=== PATIENT | male | born 1995 | race Caucasian/White ===

== ENCOUNTER 2017-10-11 19:09 | Emergency (ER) | payer OTHER ==
[2017-10-11 19:13] VITALS: BP 167/98; PULSE 72; RESP 18; TEMP 97.9; O2SAT 96
[2017-10-11] MEDS ORDERED: diphenhydrAMINE 25 MG CAP PO ONE (20:07)
--- NOTE | 2017-10-11 20:08 | EDPHY ---
H & P Stated Complaint: CASHEW IN MOUTH/SPIT OUT FEW SPOTS ON TONGUE Time Seen by Provider: 10/11/17 19:46 HPI/ROS: CHIEF COMPLAINT: Tongue swelling after contacting cashew HISTORY OF PRESENT ILLNESS: The patient is a 22 y/o male with a known cashew allergy arriving for evaluation after contact with cashews one hour ago. He was starting to eat some rice and was alerted that there were cashews in the rice right before he swallowed. He spit out the food, but noticed his tongue started to swell. He went home to get his EpiPen, but did not use it nor take Benadryl or any other medications. At time of assessment, his tongue feels back to normal. He denies difficulty breathing, difficulty swallowing, facial swelling, facial or mouth itching, hives, nausea, vomiting, or other complaints. REVIEW OF SYSTEMS: Constitutional: No fever, no chills Eyes: No visual changes ENT: No sore throat, no oral swelling Respiratory: No cough, no shortness of breath Cardiac: No chest pain Gastrointestinal: no vomiting, no abdominal pain Genitourinary: no dysuria Musculoskeletal: No swelling Skin: No rash or itchiness Neurological: No headache, no weakness Psychiatric: felt anxious - Personal History Current Tetanus/Diphtheria Vaccine: Yes - Medical/Surgical History PMH: PMH includes: 1. Cashew allergy - has old EpiPen 2. Appendectomy Hx Asthma: No Hx Chronic Respiratory Disease: No Hx Diabetes: No Hx Cardiac Disease: No Hx Renal Disease: No Hx Cirrhosis: No Hx Alcoholism: No Hx HIV/AIDS: No Hx Splenectomy or Spleen Trauma: No Other PMH: CASHEW ALLERGY/APPY - Social History Smoking Status: Never smoked Additional Social History: Nonsmoker. [employer] student. - Physical Exam Exam: General Appearance: Alert, no distress Eyes: Pupils equal and round, no conjunctival injection, no periorbital swelling ENT, Mouth: Normal inspection, no tongue/oral swelling, uvula midline Neck: Normal inspection, no stridor Respiratory: Lungs are clear to auscultation, no wheezing Cardiovascular: Regular rate and rhythm Gastrointestinal: Abdomen is soft and non-tender Neurological: A&O, nonfocal, normal gait Skin: Warm and dry, no urticaria Extremities: normal inspection, no swelling Psychiatric: Mood and affect normal Constitutional: Initial Vital Signs Temperature (C) 36.6 C 10/11/17 19:10 Heart Rate 72 10/11/17 19:10 Respiratory Rate 18 10/11/17 19:10 Blood Pressure 167/98 H 10/11/17 19:10 O2 Sat (%) 96 10/11/17 19:10 O2 Delivery Mode Room Air Allergies/Adverse Reactions: No Known Allergies Allergy (Unverified 10/11/17 19:10) Home Medications: Medication Instructions Recorded EPINEPHrine 10/11/17 EPINEPHrine [Epipen 0.3 MG] 0.3 mg IM ONCE #2 syr 10/11/17 Medical Decision Making ED Course/Re-evaluation: This is a healthy 22 y/o male with a cashew allergy who presents for evaluation of tongue swelling after contact with cashews. He is asymptomatic upon assessment. No respiratory distress or airway involvement on exam. No rash or vomiting. He does not appear to be having an ongoing allergic reaction, but recommended 25mg PO Benadryl prior to discharge. New EpiPen script provided. Strict return precautions discussed. He is comfortable with this plan. Differential Diagnosis: includes though not limited to angioedema, bronchospasm, urticaria, hypotension , airway compromise - Data Points Medications Given: Discontinued Medications Diphenhydramine HCl (Benadryl) 25 mg PO EDNOW ONE Stop: 10/11/17 20:08 Last Admin: 10/11/17 20:15 Dose: 25 mg Departure - Departure Disposition: Home, Routine, Self-Care Clinical Impression: Allergic reaction Qualifiers: Encounter type: initial encounter Qualified Code(s): T78.40XA - Allergy, unspecified, initial encounter Condition: Good Instructions: Epinephrine (By injection), Food Allergy (ED) Additional Instructions: 1. Take Benadryl as directed on the packaging should you develop any itching, swelling, rash, or other allergy symptoms. 2. Use EpiPen if you develop difficulty breathing or swallowing, facial swelling , severe rash, or other worsening of condition. Return to the ED if you develop these symptoms and/or if you use your EpiPen. 3. Follow up with your primary care provider as needed. Referrals: [facility],. [Clinic] - Follow Up Only If Needed Prescriptions: EPINEPHrine [Epipen 0.3 MG] 0.3 mg IM ONCE #2 syr Report Scribed for: Cristina Shaikh Report Scribed by: Keisha Dunlap Date of Report: 10/11/17 Time of Report: 20:08 Physician Review and Approval Statement: 10/11/17 20:08 Portions of this note were transcribed by a special forces medical sergeant. I personally performed a history, physical exam, medical decision making, and confirmed accuracy of information the transcribed note.
== END 2017-10-11 20:17 | disposition home or self-care (01) ==
DX: T78.1XXA Other adverse food reactions, not elsewhere classified, initial encounter (principal); Z91.018 Allergy to other foods